=== PATIENT | male | born 1970 | race Caucasian/White ===

== ENCOUNTER 2019-12-06 08:17 | Emergency (ER) | payer BC, OTHER ==
--- NOTE | 2019-12-06 08:55 | EDM.PDOC ---
ED HPI GENERAL MEDICAL PROBLEM - General Chief Complaint: General Stated Complaint: R SIDE SWOLLEN FACE Time Seen by Provider: 12/06/19 08:53 Source of Information: Reports: Patient History Limitations: Reports: No Limitations - History of Present Illness INITIAL COMMENTS - FREE TEXT/NARRATIVE: Rt jaw swelling since last night,Mild pain. No trauma - Related Data Allergies Allergy/AdvReac Type Severity Reaction Status Date / Time No Known Allergies Allergy Verified 12/06/19 08:29 Home Meds: Home Meds Insulin Glargine,Hum.Rec.Anlog [Basaglar Kwikpen U-100] 20 unit SQ BEDTIME 12/05 [History] Simvastatin 40 mg PO WITHDINNER 12/06/19 [History] allopurinoL [Zyloprim] 300 mg PO DAILY 12/06/19 [History] clindamycin HCL [Cleocin] 300 mg PO Q8H #30 cap 12/06/19 [Rx] glipiZIDE [Glucotrol] 10 mg PO DAILY 12/06/19 [History] metFORMIN HCl [Metformin HCl] 850 mg PO TID 12/06/19 [History] Past Medical History Cardiovascular History: Reports: High Cholesterol, Hypertension Endocrine/Metabolic History: Reports: Diabetes, Type II Social & Family History - Tobacco Use Smoking Status *Q: Never Smoker - Recreational Drug Use Recreational Drug Use: No ED ROS GENERAL - Review of Systems Review Of Systems: Comprehensive ROS is negative, except as noted in HPI. ED EXAM, GENERAL - Physical Exam Exam: See Below Exam Limited By: No Limitations General Appearance: Alert, WD/WN Nose: Normal Inspection Throat/Mouth: Normal Inspection, Other (Tender right jaw.). No: Normal Teeth, Normal Gums Head: Atraumatic Neck: Normal Inspection Course - Vital Signs Last Recorded V/S: Last Vital Signs Temp 97.2 F 12/06/19 08:20 Pulse 98 12/06/19 08:20 Resp 16 12/06/19 08:20 BP 142/75 H 12/06/19 08:20 Pulse Ox 98 12/06/19 08:20 Departure - Departure Time of Disposition: 08:54 Disposition: Home, Self-Care 01 Condition: Good Clinical Impression: Dental abscess - Discharge Information Prescriptions: clindamycin HCL [Cleocin] 300 mg PO Q8H #30 cap Referrals: Nyarandi,Inderjit M, MD [Primary Care Provider] - Sepsis Event Note - Evaluation Sepsis Screening Result: No Definite Risk - Focused Exam Vital Signs: Vital Signs Temp Pulse Resp BP Pulse Ox 12/06/19 08:20 97.2 F 98 16 142/75 H 98 Date Exam was Performed: 12/06/19 Time Exam was Performed: 08:53 - Problem List & Annotations (1) Dental abscess SNOMED Code(s): 511691903 Code(s): K04.7 - PERIAPICAL ABSCESS WITHOUT SINUS Status: Acute Current Visit: Yes - Problem List Review Problem List Initiated/Reviewed/Updated: Yes - Assessment/Plan Plan: Clinda 300 mg tid
== END 2019-12-06 08:55 | disposition home or self-care (01) ==
LOC: FB.ED 08:17
DX: K04.7 Periapical abscess without sinus (principal); E78.00 Pure hypercholesterolemia, unspecified; I10 Essential (primary) hypertension; E11.9 Type 2 diabetes mellitus without complications; Z79.899 Other long term (current) drug therapy; Z79.4 Long term (current) use of insulin
CPT/HCPCS: 99283